=== PATIENT | female | born 1950 | race Caucasian/White ===

== ENCOUNTER 2017-09-26 17:42 | Emergency (ER) | payer MEDICARE ==
[~2017-09-26] VITALS: Ht 165.1 cm; Wt 58.1 kg
== END 2017-09-26 19:13 | disposition home or self-care (01) ==
LOC: ER 17:42
DX: M79.674 Pain in right toe(s) (principal); Z88.2 Allergy status to sulfonamides; Z88.5 Allergy status to narcotic agent; Z87.891 Personal history of nicotine dependence
CPT/HCPCS: 73630; 99283

== ENCOUNTER → 2020-10-16 | Outpatient (CLI) | payer MEDICARE | END | disposition home or self-care (01) | LOC: LAB SHORT 12:22 → LAB 12:22 | DX: D48.5 Neoplasm of uncertain behavior of skin (principal) | CPT/HCPCS: 88305 ==

== ENCOUNTER 2022-01-23 12:04 | Day surgery (SDC) | payer MEDICARE ==
[~2022-01-23] VITALS: Ht 162.6 cm; Wt 68.1 kg
--- NOTE | 2022-01-23 12:51 | NUR ---
01/23/22 1251 Pradeep James tTETRACAINE AT 1237 INTO LEFT EYE PLDEGET AT 1240 INTO EYE PLACED BY KATHLEEN MCCOYL
--- NOTE | 2022-01-23 14:19 | NUR ---
01/23/22 1419 Alexi Crook PT D/C'D TO HOME, AMBU TO CAR DRIVEN BY , NO C/O PAIN, NV, DIZZINESS, PT VU D/C INSTRUCTIONS, VS WNL, RESP ON RA CTA BILAT, PERSONAL BELONGINGS RETURNED TO PT, PT DENIES ANY NEEDS.
== END 2022-01-23 14:16 | disposition home or self-care (01) ==
LOC: ORSCSDS 12:04
PROVIDERS: Ophthalmology
PROC: 08DK3ZZ Extraction of Left Lens, Percutaneous Approach (ICD-10-PCS; principal; 2022-01-23 13:30)
DX: H25.12 Age-related nuclear cataract, left eye (principal); Z96.1 Presence of intraocular lens; H26.491 Other secondary cataract, right eye; E78.5 Hyperlipidemia, unspecified; Z87.891 Personal history of nicotine dependence
CPT/HCPCS: J2001; J2250; J3010; J3301; J7040; V2632

== ENCOUNTER → 2022-11-04 | Outpatient (CLI) | payer MEDICARE | END | disposition home or self-care (01) | LOC: LAB 14:38 → LAB SHORT 14:38 → PLD 14:38 | DX: D48.5 Neoplasm of uncertain behavior of skin (principal) | CPT/HCPCS: 88305 ==

== ENCOUNTER → 2023-02-14 | Outpatient (CLI) | payer MEDICARE | END | disposition home or self-care (01) | LOC: LAB 12:30 → LAB SHORT 12:30 | DX: N30.01 Acute cystitis with hematuria (principal) | CPT/HCPCS: 87077; 87086; 87186 ==

== ENCOUNTER → 2023-12-22 | Outpatient (CLI) | payer MEDICARE | END | disposition home or self-care (01) | LOC: LAB 16:57 → LAB SHORT 16:57 | DX: N39.0 Urinary tract infection, site not specified (principal) | CPT/HCPCS: 87077; 87086; 87186 ==

== ENCOUNTER → 2024-01-26 | Outpatient (CLI) | payer MEDICARE | END | disposition home or self-care (01) | LOC: LAB 13:21 → LAB SHORT 13:21 | DX: N39.0 Urinary tract infection, site not specified (principal) | CPT/HCPCS: 87077; 87086; 87186 ==